=== PATIENT | female | born 1935 | race Caucasian/White ===

== ENCOUNTER → 2017-01-22 | Outpatient (CLI) | payer MEDICARE ==
[~2017-01-22] MED LIST: ALEVE220 M1 PO; CALTRATE-600 W600 MG PO; CEFTIN250 MG PO; CULTURELLE1 CAP PO; FEOSOL-DPS325 MG PO; FLAX SEED OIL1000 MG PO; GARLIC500 MG PO; HYZAAR-100/251 TAB PO; LEVAQUIN DPS750 MG PO; MEVACOR40 MG PO; NIACIN100 MG PO; OMEGA-3 DPS1000 MG PO; REMERON DPS15 MG PO; VITAMIN D31000 UNIT PO
== END | disposition home or self-care (01) ==
LOC: PTH.S 01-18 12:15 → RAD.S 01-18 12:15 → PTH.S 09:30 → RAD.S 10:00 → PTH.S 11:04
DX: Z04.3 Encounter for examination and observation following other accident (principal); F03.90 Unspecified dementia, unspecified severity, without behavioral disturbance, psychotic disturbance, mood disturbance, and anxiety; Z82.0 Family history of epilepsy and other diseases of the nervous system; V89.2XXA Person injured in unspecified motor-vehicle accident, traffic, initial encounter